=== PATIENT | female | born 1990 | race Caucasian/White ===

== ENCOUNTER 2018-04-04 19:47 | Emergency (ER) | payer BC ==
[2018-04-04 20:00] VITALS: BP 124/93
--- NOTE | 2018-04-04 20:09 | ED Physician Documentation ---
General Adult - HISTORIAN Historian: patient - HPI Stated Complaint: Rash Chief Complaint: General Adult Onset: days ago (1) Timing: still present Severity: mild Further Comments: yes (Pt is a 27 yo female with a rash on back and thighs. Sx started yesterday. Rash has been itchy. Pt took benadryl today and itching stopped.) - ROS CONST: no problems EYES/ENT: none CVS/RESP: none GI/: none MS/SKIN/LYMPH: rash - PAST HX Past History: other (anxiety, bipolar d/o) Surgeries/Procedures: , other (adenoids) Allergies/Adverse Reactions: Allergies Allergy/AdvReac Type Severity Reaction Status Date / Time No Known Allergies Allergy Unverified 04/04/18 20:00 Home Medications: Ambulatory Orders Medication Instructions Recorded Alprazolam [Xanax XR] 1 mg PO PRN PRN 04/04/18 Amphetamine Sulfate [Evekeo] 30 mg PO DAILY 04/04/18 Dextroamphetamine/Amphetamine 30 mg PO BID 04/04/18 [Amphetamine Salts 30 mg Tab] Divalproex Sodium [Depakote] 250 mg PO TID 04/04/18 - SOCIAL HX Smoking History: cigarettes - FAMILY HX Family History: No - VITAL SIGNS Vital Signs: Vital Signs Temp Pulse Resp BP Pulse Ox 98 F 80 18 124/93 98 04/04/18 19:48 04/04/18 19:48 04/04/18 19:48 04/04/18 19:48 04/04/18 19:48 - REVIEWED ASSESSMENTS Nursing Assessment Reviewed: Yes Vitals Reviewed: Yes Progress - Progress Progress: Benadryl/Zantac (or Pepcid) as directed. General Adult Physical Exam - PHYSICAL EXAM GENERAL APPEARANCE: no distress NECK: normal inspection, supple RESPIRATORY: no resp distress, chest non-tender, breath sounds normal CVS: reg rate & rhythm, heart sounds normal BACK: other (faint erythematous rash on back) SKIN: other (faint erythematous rash on back and thigh at/under elastic undergarment lines; c/w heat rash) EXTREMITIES: non-tender, normal range of motion, no evidence of injury, no edema NEURO: oriented X3, motor nml, sensation nml Discharge Clincal Impression: rash Referrals: Jonnie Person [Primary Care Provider] - Condition: Good Disposition: 01 HOME, SELF-CARE Decision to Admit: NO Decision Time: 20:09
== END 2018-04-04 20:14 | disposition home or self-care (01) ==
LOC: ED 19:47
DX: R21 Rash and other nonspecific skin eruption (principal)